=== PATIENT | female | born 1945 | race Caucasian/White ===

== ENCOUNTER 2019-04-19 08:50 | Outpatient (CLI) | payer OTHER ==
[~2019-04-19 08:50] MED LIST: ATEN50TA PO; FENO160 PO; GLU500 PO; LISI40TA4 PO; NOR10 PO; SIMV20TA2 PO; SOLI5TAB2 PO
== END 2019-04-19 20:34 | disposition home or self-care (01) ==
LOC: SNM 08:50
PROVIDERS: ATTEND Family Medicine
DX: K83.8 Other specified diseases of biliary tract (principal)
CPT/HCPCS: 78226; A9537